=== PATIENT | male | born 1995 | race American Indian/Alaskan Native ===

== ENCOUNTER 2018-10-18 21:18 | Emergency (ER) | payer SELFPAY ==
--- NOTE | 2018-10-18 21:27 | Emergency Department Report ---
ED Psych HPI - General Stated Complaint: MH EVAL/SUICIDAL Time Seen by Provider: 10/18/18 21:22 Source: patient, EMS Mode of arrival: Stretcher Limitations: No Limitations - History of Present Illness Initial Comments: Patient is a 23-year-old male that presents emergency room with complaints of suicidal ideation and attempt by hanging. Patient states he wants himselftired of feeling this way. Patient states nobody wants him and he does not want to live. Patient states he was hanging when the police officers cut him down. Patient states he on himself with a belt. Patient denies neck pain. Patient denies chest pain. Patient denies head injury. MD Complaint: suicidal ideation, feels depressed -: Sudden Associated Psychiatric Symptoms: depression, suicidal ideation History of same: Yes Quality: constant Improves With: none Worsens With: none Associated Symptoms: denies other symptoms. denies: confusion, headache, shortness of breath, nausea, vomiting, syncope, insomnia Treatments Prior to Arrival: placed on mental he If Self Harm: admits thoughts of, has plan, has acted on plan - Related Data Home Medications Medication Instructions Recorded Confirmed Last Taken No Known Home Medications [No 04/04/14 10/18/18 Unknown Reported Home Medications] Allergies Allergy/AdvReac Type Severity Reaction Status Date / Time No Known Allergies Allergy Verified 04/04/14 05:18 ED Review of Systems ROS: Stated complaint: MH EVAL/SUICIDAL Other details as noted in HPI Constitutional: denies: chills, fever Eyes: denies: eye pain, eye discharge, vision change ENT: denies: ear pain, throat pain Respiratory: denies: cough, shortness of breath, wheezing Cardiovascular: denies: chest pain, palpitations Endocrine: no symptoms reported Gastrointestinal: denies: abdominal pain, nausea, diarrhea Genitourinary: denies: urgency, dysuria Musculoskeletal: denies: back pain, joint swelling, arthralgia Skin: denies: rash, lesions Neurological: denies: headache, weakness, paresthesias Psychiatric: depression, suicidal thoughts. denies: anxiety Hematological/Lymphatic: denies: easy bleeding, easy bruising ED Past Medical Hx - Past Medical History Previous Medical History?: Yes Hx Psychiatric Treatment: Yes (bipolar) Additional medical history: ADHD - Surgical History Past Surgical History?: No - Family History Family history: no significant - Social History Smoking Status: Never Smoker Substance Use Type: None - Medications Home Medications: Home Medications Medication Instructions Recorded Confirmed Last Taken Type No Known Home Medications [No 04/04/14 10/18/18 Unknown History Reported Home Medications] ED Physical Exam - General Limitations: No Limitations General appearance: alert, in no apparent distress - Head Head exam: Present: atraumatic, normocephalic - Eye Eye exam: Present: normal appearance, PERRL Pupils: Present: normal accommodation - ENT ENT exam: Present: mucous membranes moist - Neck Neck exam: Present: normal inspection, full ROM. Absent: tenderness, meningismus - Respiratory Respiratory exam: Present: normal lung sounds bilaterally. Absent: respiratory distress, wheezes, rales, rhonchi - Cardiovascular Cardiovascular Exam: Present: regular rate, normal rhythm. Absent: systolic murmur, diastolic murmur, rubs, gallop - GI/Abdominal GI/Abdominal exam: Present: soft, normal bowel sounds. Absent: distended, tenderness, guarding, rebound - Rectal Rectal exam: Present: deferred - Extremities Exam Extremities exam: Present: normal inspection - Back Exam Back exam: Present: normal inspection - Neurological Exam Neurological exam: Present: alert, oriented X3 - Psychiatric Psychiatric exam: Present: depressed, suicidal ideation - Skin Skin exam: Present: warm, dry, intact, normal color. Absent: rash ED Course Vital Signs 10/18/18 21:24 Temperature 98.4 F Pulse Rate 82 Respiratory 18 Rate Blood Pressure 128/82 [Left] O2 Sat by Pulse 98 Oximetry - Reevaluation(s) Reevaluation #1: Initial evaluation done. Patient will have a CT of his neck to clear any neck injury from hanging. Patient placed in a c-collar. Patient placed on 1013 10/18/18 21:26 Reevaluation #2: CT neck negative. Patient's c-collar removed. 10/18/18 22:19 Reevaluation #3: Patient is medically cleared and will remain in the ER as an ER hold and on a 1013. 10/19/18 01:34 ED Medical Decision Making - Lab Data Result diagrams: 10/18/18 22:49 10/18/18 22:49 - Radiology Data Radiology results: report reviewed Examination: CT of the cervical spine without contrast, 10/18/2018 Clinical information: Neck trauma. Comparison: None Technical: Multiple axial CT images of the cervical spine were obtained without intravenous contrast. Sagittal and coronal reformats were obtained. All CTs at this facility utilize dose reduction techniques including automated exposure control, iterative reconstruction and weight based dosing when appropriate to reduce patient radiation dose to as low as reasonable achievable. Findings: There is no evidence of acute fracture of the cervical vertebral bodies. Vertebral body height and alignment appears within normal limits. Limited imaging of the bilateral lung apices is unremarkable. Limited evaluation of soft tissue structures demonstrates no evidence of focal acute soft tissue abnormality. Impression: 1. No CT evidence of acute bony abnormality of the cervical spine. - Medical Decision Making Patient is a 23-year-old male presents to emergency with complaints of suicide attempt by me. Patient was found by the police hanging from a belt in his garage. Patient was brought in by EMS. Patient had a CT of his neck was negative. Patient's labs are unremarkable. Patient is medically cleared and will remain in the ER on a 1013 until accepted into an appropriate psychiatric facility. - Differential Diagnosis suicidal ideation and attempt. Critical care attestation.: If time is entered above; I have spent that time in minutes in the direct care of this critically ill patient, excluding procedure time. ED Disposition Clinical Impression: Suicide attempt, Suicide ideation, Medical clearance for psychiatric admission Depression Qualifiers: Depression Type: unspecified Qualified Code(s): F32.9 - Major depressive disorder, single episode, unspecified Disposition: [id number]/TX-65 PSY HOSP/PSY UNIT Is pt being admited?: No Does the pt Need Aspirin: No Condition: Stable Additional Instructions: Patient is medically cleared. Time of Disposition: 02:03
--- NOTE | 2018-10-18 22:00 | Cat Scan Report ---
Examination: CT of the cervical spine without contrast, 10/18/2018 Clinical information: Neck trauma. Comparison: None Technical: Multiple axial CT images of the cervical spine were obtained without intravenous contrast. Sagittal and coronal reformats were obtained. All CTs at this facility utilize dose reduction techn iques including automated exposure control, iterative reconstruction and weight based dosing when cisco ropriate to reduce patient radiation dose to as low as reasonable achievable. Findings: There is no evidence of acute fracture of the cervical vertebral bodies. Vertebral body height and al ignment appears within normal limits. Limited imaging of the bilateral lung apices is unremarkable. Limited evaluation of soft tissue structures demonstrates no evidence of focal acute soft tissue abno rmality. Impression: 1. No CT evidence of acute bony abnormality of the cervical spine. Signer Name: Flakita Valente MD Signed: 10/18/2018 9:56 PM Workstation Name: [id number]
[2018-10-18 23:06] LABS: Basophils % (Auto) 0.4 % (0.0-1.8); Eosinophils % (Auto) 0.4 % (0.0-4.3); Hematocrit 46.6 % (35.5-45.6); Hemoglobin 15.6 gm/dl (11.8-15.2); Lymphocytes # (Auto) 2.2 K/mm3 (1.2-5.4); Lymphocytes % (Auto) 31.8 % (13.4-35.0); Mean Corpuscular HGB Conc 33 % (32-34); Mean Corpuscular Volume 82 fl (84-94); Monocytes # (Auto) 0.5 K/mm3 (0.0-0.8); Monocytes % (Auto) 7.7 % (0.0-7.3); Platelet Count 247 K/mm3 (140-440); Red Blood Count 5.71 M/mm3 (3.65-5.03); Red Cell Distribution Width 15.1 % (13.2-15.2)
[2018-10-18 23:36] LABS: Alanine Aminotransferase 21 units/L (7-56); Albumin 4.8 g/dL (3.9-5); BUN/Creatinine Ratio 14; Blood Urea Nitrogen 17 mg/dL (9-20); Calcium 9.9 mg/dL (8.4-10.2); Hemolysis Index 5
[2018-10-19 01:36] LABS: Bilirubin,Urine NEG (Negative); Blood,Urine NEG (Negative); Color,Urine Yellow (Yellow); Mucus,Urine 3+ /HPF; Urobilinogen,Urine < 2.0 mg/dL (<2.0)
[2018-10-19 01:43] LABS: Amphetamine Screen,Urine PRESUMPTIVE NEGATIVE; Benzodiazepines Screen,Urine PRESUMPTIVE NEGATIVE; Cocaine Screen,Urine PRESUMPTIVE NEGATIVE; Methadone Screen,Urine PRESUMPTIVE NEGATIVE; Opiate Screen,Urine PRESUMPTIVE NEGATIVE
[2018-10-19 02:09] LABS: Cannabinoid Screen,Urine PRESUMPTIVE POSITIVE
--- NOTE | 2018-10-19 10:16 | Consultation ---
History of Present Illness - Reason for Consult Consult date: 10/19/18 Reason for consult: Mental Health Evaluation Requesting physician: RADHA MICHAUD III - Chief Complaint Chief complaint: "I wanted love" - History of Present Psychiatric Illness 23 y.o. AA male who presented to the ER for a suicide attempt by hanging himself. Today the patient was calm and cooperative during the assessment. He s tated that he was trying to get attention from his girlfriend and family yesterday per his actions. He stated that he wasn't suicidal at the time. He stated that he is going through some relationship issues currently. He stated that he haven't been sleeping because of the his istressors. He was asked about previous suicide attempts, he stated, "I have never tried anything like this." Per the record the patient did something similar per the notes. He stated that he isn't depressed now, but still feel some type of way. He denies SI/HI's and AVH's. He denies a poor appetite. He acknowledged that he smoke marijuana, but denies alcohol consumption (etoh). Medications and Allergies Allergies Allergy/AdvReac Type Severity Reaction Status Date / Time No Known Allergies Allergy Verified 04/04/14 05:18 Home Medications Medication Instructions Recorded Confirmed Last Taken Type No Known Home Medications [No 04/04/14 10/18/18 Unknown History Reported Home Medications] Past psychiatric history - Past Medical History Past Medical History: No medical history Past Surgical History: No surgical history - past Psychiatric treatment and history psychiatric treatment history: Denies a psy hx and afm psy hx. - Social History Social history: lives with family Mental Status Exam - Vital signs Last Vital Signs Temp 98.4 F 10/18/18 21:24 Pulse 82 10/18/18 21:24 Resp 18 10/18/18 21:24 BP 128/82 10/18/18 21:24 Pulse Ox 98 10/18/18 21:24 - Exam Narrative exam: MSE: Appearance: calm, cooperative Behavior: regular eye contact Speech: regular rate and tone l Mood: "okay" Affect: congruent to mood Thought Process: circumstantial Thought Content: denies SI/HI's and AVH's Motor Activity: sitting up in bed Cognition: A/O x3 Insight: variable Judgment: poor Results Result Diagrams: 10/18/18 22:49 10/18/18 22:49 Abnormal lab results 10/18/18 10/18/18 10/18/18 Range/Units 22:49 22:49 22:49 RBC 5.71 H (3.65-5.03) M/mm3 Hgb 15.6 H (11.8-15.2) gm/dl Hct 46.6 H (35.5-45.6) % MCV 82 L (84-94) fl MCH 27 L (28-32) pg Larimer % (Auto) 7.7 H (0.0-7.3) % Total Protein 8.4 H (6.3-8.2) g/dL Salicylates < 0.3 L (2.8-20.0) mg/dL Acetaminophen (10.0-30.0) ug/mL 10/18/18 Range/Units 22:49 RBC (3.65-5.03) M/mm3 Hgb (11.8-15.2) gm/dl Hct (35.5-45.6) % MCV (84-94) fl MCH (28-32) pg Larimer % (Auto) (0.0-7.3) % Total Protein (6.3-8.2) g/dL Salicylates (2.8-20.0) mg/dL Acetaminophen < 5.0 L (10.0-30.0) ug/mL All other labs normal. Assessment and Plan Assessment and plan: Impression: MDD, Severe Type. Insomnia. Cannabis Use OO. The patient was calm and cooperative during the assessment. DDx: Bipolar DO, Substance Induced Mood DO Recommendation/Plan: Continue 1013 and start Melatonin 5 mg PO HS for sleep. Discussed risks/benefits of SSRI's, the patient prefer talk therapy at this time. Dispo: The patient was referred to inpatient psy services. Will staff with Dr Sheridan Jones.
[2018-10-19] MEDS: MELATONIN PO SCH (23:57)
[2018-10-20] MEDS ORDERED: GEODON IM ONE (00:09)
--- NOTE | 2018-10-20 12:11 | Progress Note ---
Subjective - Reason for Consult Consult date: 10/20/18 Reason for consult: Psychiatry Follow-up - Chief Complaint Chief complaint: "I need to get home" 23 y.o. AA male who presented to the ER for a suicide attempt by hanging himself. Today the patient was calm during the assessment. He is more concerned about being discharged than discussing his action prior to his ER visit. He is adamant that he is "okay." The patient maybe minimizing his actions. He denies SI/HI's and AVH's. Mental Status Exam - Vital signs Last Vital Signs Temp 98.4 F 10/20/18 01:40 Pulse 90 10/20/18 05:00 Resp 20 10/20/18 05:00 BP 122/83 10/20/18 01:40 Pulse Ox 99 10/20/18 05:00 - Exam Narrative exam: MSE: Appearance: calm, cooperative Behavior: regular eye contact Speech: regular rate and tone l Mood: "okay" Affect: congruent to mood Thought Process: circumstantial Thought Content: denies SI/HI's and AVH's Motor Activity: sitting up in bed Cognition: A/O x3 Insight: variable Judgment: variable Assessment and Plan Impression: MDD, Severe Type. Insomnia. Cannabis Use OO. The patient was calm and cooperative during the assessment. DDx: Bipolar DO, Substance Induced Mood DO Recommendation/Plan: Continue 1013 and Melatonin 5 mg PO HS for sleep. Discussed risks/benefits of SSRI's, the patient prefer talk therapy at this time. Dispo: The patient was referred to inpatient psy services. Will staff with Dr Sheridan Jones.
[2018-10-20] MEDS: MELATONIN PO SCH (21:46)
--- NOTE | 2018-10-21 13:59 | Progress Note ---
Subjective - Reason for Consult Consult date: 10/21/18 Reason for consult: Psychiatric Follow-up Evaluation - Chief Complaint Chief complaint: "I feel like leaving." Patient is a 23 y.o. AA male who presented to the emergency room for a suicide attempt by hanging himself. Today the patient is cooperative but anxious during the assessment. He states, " I feel like I'm on edge. I'm worried about my kids." He reports decrease sleep and appropriate appetite. He presents with a tangential thought process. He denies SI/HI's and A/VH's. Appears to be minimizing symptoms. Mental Status Exam - Vital signs Last Vital Signs Temp 98.2 F 10/21/18 08:03 Pulse 58 L 10/21/18 08:03 Resp 16 10/21/18 08:03 BP 108/76 10/21/18 08:03 Pulse Ox 98 10/21/18 08:03 - Exam Narrative exam: Mental Status Exam: Appearance: anxious, cooperative Behavior: regular eye contact Speech: regular rate and tone Mood: "I feel on edge" Affect: congruent to mood Thought Process: circumstantial Thought Content: denies SI/HI's and AVH's : +/- paranoid delusions Motor Activity: ambulatory Cognition: A/O x 3 Insight: variable Judgment: variable Assessment and Plan Impression: MDD, Severe Type. Insomnia. Cannabis Use OO. The patient is cooperative but anxious during the assessment. He denies SI/HI's and psychosis. Appears to be minimizing symptoms. DDx: Bipolar DO, Substance Induced Mood DO Recommendation/Plan: 1. Continue 1013. 2. Continue Melatonin 5mg po QHS. 3. Start Trazodone 50mg po QHS insomnia. Discussed the side effects of medication with patient. Patient verbalizes understanding. Disposition: The patient was referred to inpatient psychiatric services. Will staff with Dr Sheridan Jones.
[2018-10-21] MEDS ORDERED: DESYREL PO SCH (22:00)
[2018-10-21] MEDS: MELATONIN PO SCH (22:30)
[2018-10-22 07:59] VITALS: BP 143/85
--- NOTE | 2018-10-22 10:01 | Progress Note ---
Subjective - Reason for Consult Consult date: 10/22/18 Reason for consult: Psychiatry Follow-up - Chief Complaint Chief complaint: "I feel like leaving." 23 y.o. AA male who presented to the emergency room for a suicide attempt by hanging himself. Today the patient was cooperative during the assessment. He was informed that he was accepted at [facility] for inpatient psy services. He is adamant that he does not need inpatient psy services. He denies SI/HI's and AVH's. Mental Status Exam - Vital signs Last Vital Signs Temp 98.0 F 10/22/18 07:58 Pulse 69 10/22/18 07:58 Resp 18 10/22/18 07:58 BP 143/85 10/22/18 07:58 Pulse Ox 98 10/22/18 07:58 - Exam Narrative exam: MSE: Appearance: cooperative Behavior: regular eye contact Speech: regular rate and tone l Mood: "okay" Affect: congruent to mood Thought Process: circumstantial Thought Content: denies SI/HI's and AVH's Motor Activity: sitting up in bed Cognition: A/O x3 Insight: variable Judgment: variable Assessment and Plan Impression: MDD, Severe Type. Insomnia. Cannabis Use DO. The patient was cooperative during the assessment. DDx: Bipolar DO, Substance Induced Mood DO Recommendation/Plan: Continue 1013 and Melatonin 5 mg PO HS for sleep. Discussed risks/benefits of SSRI's, the patient prefer talk therapy at this time. Dispo: The patient was accepted at [facility] for inpatient psy services. Will staff with Dr Sheridan Jones.
== END 2018-10-22 10:00 ==
LOC: ED 21:18 → EEVIPCON 21:18 → ED 10-22 10:00
DX: F32.89 Other specified depressive episodes (principal); F31.9 Bipolar disorder, unspecified; F90.9 Attention-deficit hyperactivity disorder, unspecified type; G47.00 Insomnia, unspecified; F12.10 Cannabis abuse, uncomplicated
CPT/HCPCS: 36415; 72125; 80053; 80307; 81001; 85025; 96372; 99285; J3486; 80320; G0480